=== PATIENT | male | born 1955 | race Caucasian/White ===

== ENCOUNTER 2017-07-13 08:43 | Outpatient (CLI) | payer BC ==
[~2017-07-13] VITALS: Ht 198.1 cm; Wt 113.5 kg
[~2017-07-13 08:43] MED LIST: ALTACE 10MG TAB10 MG PO; ASPIRIN E.C. 8181 MG PO; HCTZ 25MG TAB25 MG PO; LIPITOR20 MG PO; MINOCYCLIN100 MG/CAP PO; NEURONTIN300 MG/CAP PO; PROSCAR 5MG5 MG PO
[2017-07-13] MEDS ORDERED: ALTACE 10MG TAB10 MG PO (09:31)
[2017-07-13] MEDS ORDERED: HCTZ 25MG TAB25 MG PO (09:32)
[2017-07-13] MEDS ORDERED: LIPITOR20 MG PO (09:32)
[2017-07-13] MEDS ORDERED: LYRICA 100MG C100 M1 PO (09:33)
[2017-07-13 10:48] LABS: MEAN CELL VOLUME 84 fl (80.0-100.0); MEAN CORPUSCULAR HGB CONC 33 g/dl (33.0-37.0); MEAN PLATELET VOLUME 11.5 fl (7.4-10.4); PLATELET COUNT 59 K/mm3 (130-400); RED BLOOD COUNT 3.46 M/mm3 (4.20-5.60); REDCELL DISTRIBUTION WIDTH-CV 16.2 % (11.5-14.5)
[2017-07-13 10:50] VITALS: BP 122/69; PULSE 65
[2017-07-13 10:56] LABS: HEMOGLOBIN 9.6 g/dl (13.5-18.0); MEAN CORPUSCULAR HEMOGLOBIN 28 pg (27.0-31.0)
[2017-07-13 11:00] VITALS: BP 109/64; PULSE 79
[2017-07-13 11:15] VITALS: BP 125/71; PULSE 79
[2017-07-13 11:27] VITALS: BP 119/68; PULSE 67
[2017-07-13 11:43] LABS: BAND 15 % (0-10); EOSINOPHIL 1 % (0-4); METAMYELOCYTE 4 % (0-0); NEUTROPHILS 44 % (42.0-75.2); PLATELET ESTIMATE DECREASED (NORMAL)
[2017-07-13 11:44] LABS: LYMPHOCYTE 32 % (20.0-51.0)
== END 2017-07-13 12:31 | disposition home or self-care (01) ==
LOC: SDCO 08:43
PROVIDERS: Pathology Anatomic Pathology & Clinical Pathology
DX: D61.818 Other pancytopenia (principal); I10 Essential (primary) hypertension; G47.33 Obstructive sleep apnea (adult) (pediatric)
CPT/HCPCS: J2250; J2405; J2704; J3010

== ENCOUNTER 2017-08-13 12:50 | Day surgery (SDC) | payer BC ==
[~2017-08-13] VITALS: Ht 198.1 cm; Wt 108.0 kg
[~2017-08-13 12:50] MED LIST changes: +LYRICA 100MG C100 M1 PO
[2017-08-13 13:34] VITALS: BP 123/72; PULSE 87; TEMP 98.1
[2017-08-13] MEDS ORDERED: CYMBALTA 60MG60 MG PO (13:52)
[2017-08-13] MEDS ORDERED: PREDNISONE20 MG PO (13:53)
[2017-08-13 14:45] VITALS: BP 111/67; PULSE 82; TEMP 97.3
[2017-08-13 15:00] VITALS: BP 122/69; PULSE 78
[2017-08-13 15:15] VITALS: BP 101/55; PULSE 81
[2017-08-13 15:30] VITALS: BP 110/60; PULSE 81
[2017-08-13 16:25] VITALS: BP 117/70; PULSE 78
== END 2017-08-13 15:40 | disposition home or self-care (01) ==
LOC: SDCO 12:50
DX: D50.9 Iron deficiency anemia, unspecified (principal); Z86.010 Personal history of colon polyps; K57.30 Diverticulosis of large intestine without perforation or abscess without bleeding; I10 Essential (primary) hypertension; E78.00 Pure hypercholesterolemia, unspecified
CPT/HCPCS: OP; J2250; J3010; J7030

== ENCOUNTER 2017-08-27 10:29 | Inpatient (IN) | payer BC ==
[~2017-08-27] VITALS: Ht 198.1 cm; Wt 107.4 kg
[~2017-08-27 10:29] MED LIST changes: +CYMBALTA 60MG60 MG PO; +PREDNISONE20 MG PO
[2017-09-02] VITALS (365 sets, daily range): BP systolic 100–127; BP diastolic 65–73; PULSE 72–97; TEMP 97.5–99.6; O2SAT 95–100
[2017-09-02 08:07] LABS: MEAN CELL VOLUME 81 fl (80.0-100.0); MEAN CORPUSCULAR HGB CONC 31 g/dl (33.0-37.0); MEAN PLATELET VOLUME 11.8 fl (7.4-10.4); PLATELET COUNT 64 K/mm3 (130-400); RED BLOOD COUNT 3.34 M/mm3 (4.20-5.60); REDCELL DISTRIBUTION WIDTH-CV 19.3 % (11.5-14.5)
[2017-09-02 08:12] LABS: HEMATOCRIT 27.2 % (42.0-52.0); HEMOGLOBIN 8.3 g/dl (13.5-18.0); MEAN CORPUSCULAR HEMOGLOBIN 25 pg (27.0-31.0)
[2017-09-02 08:13] LABS: INR 1.4 (0.8-3.0); PROTHROMBIN TIME 15.8 SECONDS (9.7-12.8)
[2017-09-02 08:16] LABS: PARTIAL THROMBOPLASTIN TIME 28.8 SECONDS (26.0-37.0)
[2017-09-02] MEDS ORDERED: PREDNISONE10 MG PO (08:39)
[2017-09-02 08:47] LABS: ANISOCYTOSIS 3+; BAND 1 % (0-10); LYMPHOCYTE 87 % (20.0-51.0); NEUTROPHILS 9 % (42.0-75.2); PLATELET ESTIMATE DECREASED (NORMAL)
[2017-09-02 08:48] LABS: OVALOCYTES 1+
[2017-09-02 13:24] LABS: MEAN CELL VOLUME 83 fl (80.0-100.0); MEAN CORPUSCULAR HGB CONC 32 g/dl (33.0-37.0); MEAN PLATELET VOLUME 11.6 fl (7.4-10.4); PLATELET COUNT 85 K/mm3 (130-400); RED BLOOD COUNT 3.35 M/mm3 (4.20-5.60); REDCELL DISTRIBUTION WIDTH-CV 18.4 % (11.5-14.5)
[2017-09-02 13:25] LABS: HEMOGLOBIN 8.9 g/dl (13.5-18.0); MEAN CORPUSCULAR HEMOGLOBIN 27 pg (27.0-31.0)
[2017-09-02 13:26] LABS: HEMATOCRIT 27.8 % (42.0-52.0)
[2017-09-02 13:31] LABS: INR 1.5 (0.8-3.0); PROTHROMBIN TIME 17.1 SECONDS (9.7-12.8)
[2017-09-02 14:06] LABS: CALCIUM 7.3 mg/dL (8.4-10.2); CREATININE, serum 0.94 mg/dL (0.66-1.25)
[2017-09-02 14:09] LABS: POTASSIUM 5.8 mmol/L (3.4-5.0)
[2017-09-03] VITALS (549 sets, daily range): BP systolic 118–150; BP diastolic 69–86; PULSE 66–89; TEMP 97–97.7; O2SAT 94–100
[2017-09-03 06:43] LABS: HEMATOCRIT 24.4 % (42.0-52.0); HEMOGLOBIN 7.8 g/dl (13.5-18.0); MEAN CELL VOLUME 83 fl (80.0-100.0); MEAN CORPUSCULAR HEMOGLOBIN 26 pg (27.0-31.0); MEAN CORPUSCULAR HGB CONC 32 g/dl (33.0-37.0); MEAN PLATELET VOLUME 11.6 fl (7.4-10.4); PLATELET COUNT 101 K/mm3 (130-400); RED BLOOD COUNT 2.95 M/mm3 (4.20-5.60); REDCELL DISTRIBUTION WIDTH-CV 17.9 % (11.5-14.5)
[2017-09-03 06:59] LABS: CALCIUM 7.7 mg/dL (8.4-10.2); CREATININE, serum 0.83 mg/dL (0.66-1.25); POTASSIUM 4.4 mmol/L (3.4-5.0)
[2017-09-04] VITALS (7 sets, daily range): BP systolic 120–140; BP diastolic 55–72; PULSE 70–87; TEMP 97.8–98.7
[2017-09-04 06:57] LABS: MEAN CELL VOLUME 84 fl (80.0-100.0); MEAN CORPUSCULAR HGB CONC 31 g/dl (33.0-37.0); MEAN PLATELET VOLUME 11.9 fl (7.4-10.4); PLATELET COUNT 123 K/mm3 (130-400); RED BLOOD COUNT 2.55 M/mm3 (4.20-5.60); REDCELL DISTRIBUTION WIDTH-CV 18.4 % (11.5-14.5)
[2017-09-04 07:11] LABS: CALCIUM 7.7 mg/dL (8.4-10.2); CREATININE, serum 0.8 mg/dL (0.66-1.25); POTASSIUM 3.9 mmol/L (3.4-5.0)
[2017-09-04 07:30] LABS: HEMATOCRIT 21.5 % (42.0-52.0); HEMOGLOBIN 6.7 g/dl (13.5-18.0); MEAN CORPUSCULAR HEMOGLOBIN 26 pg (27.0-31.0)
[2017-09-04 15:49] LABS: HEMATOCRIT 26.3 % (42.0-52.0); HEMOGLOBIN 8.3 g/dl (13.5-18.0)
[2017-09-05 00:18] VITALS: BP 130/70; PULSE 84; TEMP 98.6
[2017-09-05 04:00] VITALS: BP 141/63; PULSE 73; TEMP 98.6
[2017-09-05 06:35] LABS: MEAN CELL VOLUME 87 fl (80.0-100.0); MEAN CORPUSCULAR HGB CONC 31 g/dl (33.0-37.0); MEAN PLATELET VOLUME 11.8 fl (7.4-10.4); PLATELET COUNT 154 K/mm3 (130-400); RED BLOOD COUNT 2.76 M/mm3 (4.20-5.60); REDCELL DISTRIBUTION WIDTH-CV 18.6 % (11.5-14.5)
[2017-09-05 06:44] LABS: HEMOGLOBIN 7.5 g/dl (13.5-18.0); MEAN CORPUSCULAR HEMOGLOBIN 27 pg (27.0-31.0)
[2017-09-05 07:57] VITALS: BP 135/65; PULSE 84; TEMP 98.7
== END 2017-09-05 13:35 | disposition home or self-care (01) | DRG 800 ==
LOC: INPTSU 09-02 07:29 → SURG 09-02 09:30 → ICU 09-02 14:14 → JCC 09-03 14:30
PROVIDERS: Surgery
PROC: 0WJG4ZZ Inspection of Peritoneal Cavity, Percutaneous Endoscopic Approach (ICD-10-PCS; 2017-09-02)
PROC: 07TP0ZZ Resection of Spleen, Open Approach (ICD-10-PCS; principal; 2017-09-02 09:30)
DX: R16.1 Splenomegaly, not elsewhere classified (principal); D61.818 Other pancytopenia; D62 Acute posthemorrhagic anemia; Z53.31 Laparoscopic surgical procedure converted to open procedure
CPT/HCPCS: A4314; A9284; J0690; J1100; J1170; J1720; J2370; J2405; J2704; J3010; J7030; J7120; J7512; P9016; P9035

== ENCOUNTER → 2017-09-29 | Outpatient (CLI) | payer BC ==
[~2017-09-29] MED LIST changes: +PREDNISONE10 MG PO
== END ==
LOC: COL.VAS 10:57
DX: Z01.818 Encounter for other preprocedural examination (principal); I35.1 Nonrheumatic aortic (valve) insufficiency

== ENCOUNTER → 2017-10-13 | Outpatient (CLI) | payer BC ==
[~2017-10-13] VITALS: Ht 198.1 cm; Wt 105.3 kg
[2017-10-13 10:01] VITALS: BP 127/66; PULSE 95
[2017-10-13 11:05] VITALS: BP 141/75; PULSE 91
[2017-10-13 11:20] VITALS: BP 139/71; PULSE 86
[2017-10-13 11:35] VITALS: BP 128/70; PULSE 91
== END ==
LOC: COL.RAD 09:30
DX: C83.07 Small cell B-cell lymphoma, spleen (principal); C85.95 Non-Hodgkin lymphoma, unspecified, lymph nodes of inguinal region and lower limb; Z90.81 Acquired absence of spleen

== ENCOUNTER → 2018-03-30 | Outpatient (CLI) | payer MEDICARE, BC | LOC: COL.RAD 10:00 | DX: C83.07 Small cell B-cell lymphoma, spleen (principal); J84.10 Pulmonary fibrosis, unspecified; Z95.828 Presence of other vascular implants and grafts; Z90.81 Acquired absence of spleen | CPT/HCPCS: Q9967 ==

== ENCOUNTER → 2018-04-09 | Outpatient (CLI) | payer MEDICARE, BC | LOC: COL.VAS 12:13 | DX: I08.1 Rheumatic disorders of both mitral and tricuspid valves (principal); R79.89 Other specified abnormal findings of blood chemistry; R10.9 Unspecified abdominal pain; R60.0 Localized edema ==

== ENCOUNTER 2018-05-25 07:00 | Day surgery (SDC) | payer MEDICARE, BC ==
[2018-05-25] VITALS (13 sets, daily range): BP systolic 97–122; BP diastolic 60–70; PULSE 69–81; TEMP 97.9–98.2
[~2018-05-25] VITALS: Ht 198.2 cm; Wt 113.0 kg
[2018-05-25 07:31] LABS: HEMATOCRIT 41.9 % (42.0-52.0); HEMOGLOBIN 13.5 g/dl (13.5-18.0); MEAN CELL VOLUME 90 fl (80.0-100.0); MEAN CORPUSCULAR HEMOGLOBIN 29 pg (27.0-31.0); MEAN CORPUSCULAR HGB CONC 32 g/dl (33.0-37.0); MEAN PLATELET VOLUME 12.7 fl (7.4-10.4); PLATELET COUNT 160 K/mm3 (130-400); RED BLOOD COUNT 4.64 M/mm3 (4.20-5.60); REDCELL DISTRIBUTION WIDTH-CV 15.4 % (11.5-14.5)
[2018-05-25 07:36] LABS: INR 1.2 (0.8-3.0); PROTHROMBIN TIME 13.4 SECONDS (9.7-12.8)
[2018-05-25 07:47] LABS: CALCIUM 9.2 mg/dL (8.4-10.2); CREATININE, serum 0.89 mg/dL (0.66-1.25); POTASSIUM 3.9 mmol/L (3.4-5.0)
[2018-05-25] MEDS ORDERED: COREG 6.256.25 MG/TA PO (07:54)
[2018-05-25] MEDS ORDERED: ALTACE 10MG TAB10 MG PO (07:55)
--- NOTE | 2018-05-25 08:59 | NUR ---
ALL MEDICATIONS GIVEN VIA VERBAL ORDER WITH READBACK WITH MD. SEE MERGE FOR ALL ADMIN TIMES. 325 MG OF ASPIRIN GIVEN PER MD ORDER PRIOR TO PROCEDURE.
--- NOTE | 2018-05-25 09:40 | NUR ---
Pt returned to EU 14 per bed s/p heart cath. Pt resting well, at bedside.
--- NOTE | 2018-05-25 13:50 | NUR ---
Pt has ambulated, voided and fidel PO intake s n/v. PIV removed with catheter intact.
--- NOTE | 2018-05-25 14:30 | NUR ---
Pt discharged per w/c by nurse with .
== END 2018-05-25 14:36 | disposition home or self-care (01) ==
LOC: COL.CAR 07:00
PROVIDERS: Internal Medicine Cardiovascular Disease
DX: I25.10 Atherosclerotic heart disease of native coronary artery without angina pectoris (principal); I42.8 Other cardiomyopathies; R94.39 Abnormal result of other cardiovascular function study; E78.2 Mixed hyperlipidemia; I11.0 Hypertensive heart disease with heart failure; I50.21 Acute systolic (congestive) heart failure; Z90.49 Acquired absence of other specified parts of digestive tract; Z88.0 Allergy status to penicillin; Z79.82 Long term (current) use of aspirin; Z80.9 Family history of malignant neoplasm, unspecified; Z83.3 Family history of diabetes mellitus; Z82.49 Family history of ischemic heart disease and other diseases of the circulatory system; Z80.7 Family history of other malignant neoplasms of lymphoid, hematopoietic and related tissues
CPT/HCPCS: C1760; C1894; J1644; J2250; J3010; Q9967

== ENCOUNTER 2018-08-02 14:49 | Outpatient (RCR) | payer SELFPAY ==
[~2018-08-02 14:49] MED LIST changes: +COREG 6.256.25 MG/TA PO
== END 2018-08-05 | disposition home or self-care (01) ==
LOC: COL.CR
DX: Z02.89 Encounter for other administrative examinations (principal)

== ENCOUNTER 2018-10-20 10:57 | Day surgery (SDC) | payer MEDICARE, BC ==
[~2018-10-20] VITALS: Ht 198.1 cm; Wt 110.6 kg
[2018-10-20 10:57] VITALS: BP 106/68; PULSE 63; TEMP 98.1
[2018-10-20] MEDS ORDERED: ZEBETA 5MG5 MG PO (11:10)
[2018-10-20] MEDS ORDERED: LASIX 20MG TABL20 MG PO (11:11)
[2018-10-20] MEDS ORDERED: ZAROXOLYN 2.52.5 MG PO (11:12)
[2018-10-20 11:45] LABS: HEMATOCRIT 43.2 % (42.0-52.0); MEAN CELL VOLUME 89 fl (80.0-100.0); MEAN CORPUSCULAR HEMOGLOBIN 29 pg (27.0-31.0); MEAN CORPUSCULAR HGB CONC 32 g/dl (33.0-37.0); MEAN PLATELET VOLUME 12.6 fl (7.4-10.4); PLATELET COUNT 114 K/mm3 (130-400); RED BLOOD COUNT 4.84 M/mm3 (4.20-5.60); REDCELL DISTRIBUTION WIDTH-CV 15.3 % (11.5-14.5)
[2018-10-20 11:50] LABS: INR 1.2 (0.8-3.0); PROTHROMBIN TIME 13.5 SECONDS (9.7-12.8)
[2018-10-20 11:54] LABS: CALCIUM 9.2 mg/dL (8.4-10.2); CREATININE, serum 0.85 (0.66-1.25)
[2018-10-20 14:43] VITALS: BP 116/78; PULSE 72
--- NOTE | 2018-10-20 14:45 | NUR ---
SEE MERGE DOCUMENTATION FOR MEDICATION ADMINISTRATION TIMES AND INTRA/POST PROCEDURE SEDATION ASSESSMENTS.
[2018-10-20 17:30] VITALS: BP 101/64; PULSE 74
[2018-10-20 18:00] VITALS: BP 103/68; PULSE 66
[2018-10-20 19:19] VITALS: BP 94/50; PULSE 78; TEMP 97.3
--- NOTE | 2018-10-20 20:00 | NUR ---
Patient is alert and oriented laying in bed watching tv. Complaints of some aching pain at the ICD site. Assessment complete. Lungs are clear in all salazar. HR and rhythm regular with normal S1 and S2 heard. Bowel sounds active x4. Patient has no further needs at this time. Ice pack is placed on the ICD site, medications to be given. Will continue to monitor. Call light within reach.
[2018-10-20 23:19] VITALS: BP 102/61; PULSE 71; TEMP 97.4
--- NOTE | 2018-10-21 | NUR ---
Patient asleep at this time. No current needs. Will continue to monitor.
[2018-10-21 03:56] VITALS: BP 104/66; PULSE 73; TEMP 97.4
--- NOTE | 2018-10-21 04:00 | NUR ---
Patient has complaints of aching in his left chest where ICD was placed. Ice Pack in place. Tylenol given.
[2018-10-21] MEDS ORDERED: CLEOCIN HCL300 MG PO (10:42)
[2018-10-21] MEDS ORDERED: ZEBETA10 MG PO (10:43)
[2018-10-21] MEDS ORDERED: ENTRESTO 49 MG1 EACH PO (10:47)
--- NOTE | 2018-10-21 10:53 | NUR ---
PRATIK met with the patient and patient's , Glenda, to discuss discharge plan. The patient lives in [place] with his . He reports independence with ADLs and does not have any DME. The patient's PCP is Dr. Shivam Batista and he receives his medications at [facility]. The patient's reports no difficulties obtaining his meds. The patient's advanced directives are in EMR. His is his DPOA-HC. The patient plans to return home with his upon discharge. No additional needs at this time.
[2018-10-21 11:15] VITALS: BP 91/60; PULSE 71; TEMP 98.1
--- NOTE | 2018-10-21 12:12 | NUR ---
Patient discharged home with . Ambulated to private vehicle with no difficulty and steady gait. Is wearing sling. Discharge instructions reviewed and patient verbalized understanding.
== END 2018-10-21 12:10 | disposition home or self-care (01) ==
LOC: COL.CAR 10:57 → MEDICAL 17:27 → COL.CAR 10-21 12:10
PROVIDERS: Internal Medicine Cardiovascular Disease
DX: I42.8 Other cardiomyopathies (principal); I34.0 Nonrheumatic mitral (valve) insufficiency; E78.2 Mixed hyperlipidemia; Z85.72 Personal history of non-Hodgkin lymphomas; Z92.21 Personal history of antineoplastic chemotherapy; Z90.81 Acquired absence of spleen; I10 Essential (primary) hypertension; E78.5 Hyperlipidemia, unspecified; Z79.899 Other long term (current) drug therapy; Z79.82 Long term (current) use of aspirin; Z80.9 Family history of malignant neoplasm, unspecified; Z82.49 Family history of ischemic heart disease and other diseases of the circulatory system
CPT/HCPCS: OP; C1721; C1769; C1777; J2250; J3010; J3370; J7030; J7050

== ENCOUNTER 2018-11-03 14:41 | Outpatient (RCR) | payer SELFPAY ==
[~2018-11-03 14:41] MED LIST changes: +CLEOCIN HCL300 MG PO; +ENTRESTO 49 MG1 EACH PO; +LASIX 20MG TABL20 MG PO; +ZAROXOLYN 2.52.5 MG PO; +ZEBETA 5MG5 MG PO; +ZEBETA10 MG PO
== END 2018-11-04 | disposition home or self-care (01) ==
LOC: COL.CR
DX: Z02.89 Encounter for other administrative examinations (principal)

== ENCOUNTER 2018-11-29 15:16 | Outpatient (RCR) | payer SELFPAY | END 2019-02-03 | disposition home or self-care (01) | LOC: COL.CR | DX: Z02.89 Encounter for other administrative examinations (principal) ==

== ENCOUNTER → 2018-11-30 | Outpatient (CLI) | payer MEDICARE, BC | LOC: COL.RAD 09:58 | DX: C83.07 Small cell B-cell lymphoma, spleen (principal); D69.6 Thrombocytopenia, unspecified; Z90.81 Acquired absence of spleen; Z90.79 Acquired absence of other genital organ(s) | CPT/HCPCS: Q9967 ==

== ENCOUNTER → 2019-05-24 | Outpatient (CLI) | payer MEDICARE, BC | LOC: COL.RAD 09:35 | DX: C83.07 Small cell B-cell lymphoma, spleen (principal); Z95.0 Presence of cardiac pacemaker; Z90.81 Acquired absence of spleen; Z90.79 Acquired absence of other genital organ(s) | CPT/HCPCS: Q9967 ==

== ENCOUNTER → 2019-11-08 | Outpatient (CLI) | payer MEDICARE, BC | LOC: COL.RAD 08:13 | DX: C85.90 Non-Hodgkin lymphoma, unspecified, unspecified site (principal); C95.90 Leukemia, unspecified not having achieved remission; Z90.81 Acquired absence of spleen; Z90.79 Acquired absence of other genital organ(s); Z98.890 Other specified postprocedural states | CPT/HCPCS: Q9967 ==

== ENCOUNTER → 2020-05-02 | Outpatient (CLI) | payer MEDICARE, BC ==
[~2020-05-02] MED LIST changes: +ENTRESTO 97 MG1 EACH PO
== END ==
LOC: COL.RAD 08:52
DX: C85.90 Non-Hodgkin lymphoma, unspecified, unspecified site (principal); Z90.81 Acquired absence of spleen; Z90.79 Acquired absence of other genital organ(s)
CPT/HCPCS: Q9967

== ENCOUNTER 2020-07-04 13:17 | Outpatient (CLI) | payer MEDICARE, BC ==
[~2020-07-04] VITALS: Ht 198.1 cm; Wt 112.7 kg
[~2020-07-04 13:17] MED LIST changes: +ENTRESTO 24 MG1 EACH PO; -ENTRESTO 97 MG1 EACH PO
[2020-07-04 13:20] VITALS: BP 115/55; PULSE 84; TEMP 102.9
[2020-07-04 13:30] VITALS: BP 130/64; PULSE 85
[2020-07-04] MEDS ORDERED: ZEBETA 5MG5 MG PO (13:37)
[2020-07-04] MEDS ORDERED: ZAROXOLYN5 MG PO (13:42)
[2020-07-04] MEDS ORDERED: CLARITIN 1010 MG/TAB PO (13:44)
[2020-07-04 13:45] VITALS: BP 121/54; PULSE 86
[2020-07-04] MEDS ORDERED: ONE-A-DAY ESSE1 EACH PO (13:45)
[2020-07-04 14:00] VITALS: BP 140/67; PULSE 80
[2020-07-04 14:15] VITALS: BP 129/66; PULSE 83; TEMP 101.4
[2020-07-04 14:30] VITALS: BP 124/54; PULSE 83
--- NOTE | 2020-07-04 14:44 | NUR ---
PT TOLERATED BAM INFUSION WITH NO PROBLEM. PT IS ESCORTED TO EXIT VIA WHEELCHAIR, STATES PLANS TO TAKE TYLENOL AND/OR IBUPROFEN FOR HIS FEVER WHEN HE GETS HOME.
== END 2020-07-04 14:46 | disposition home or self-care (01) ==
LOC: EUO 13:17
DX: Z23 Encounter for immunization (principal); U07.1 COVID-19

== ENCOUNTER → 2020-07-16 | Outpatient (CLI) | payer MEDICARE, BC ==
[~2020-07-16] MED LIST changes: +CLARITIN 1010 MG/TAB PO; +ONE-A-DAY ESSE1 EACH PO; +PACERONE400 MG PO; +ZAROXOLYN5 MG PO
== END ==
LOC: COL.RAD 15:30
DX: J18.8 Other pneumonia, unspecified organism (principal); Z90.81 Acquired absence of spleen
CPT/HCPCS: Q9967

== ENCOUNTER 2020-07-31 12:50 | Emergency (ER) | payer MEDICARE, BC ==
[~2020-07-31] VITALS: Ht 198.1 cm; Wt 109.1 kg
[~2020-07-31 12:50] MED LIST changes: -PACERONE400 MG PO
[2020-07-31 12:53] VITALS: TEMP 98.5
[2020-07-31 13:16] LABS: HEMATOCRIT 42.9 % (42.0-52.0); HEMOGLOBIN 13.9 g/dl (13.5-18.0); MEAN CELL VOLUME 91 fl (80.0-100.0); MEAN CORPUSCULAR HEMOGLOBIN 29 pg (27.0-31.0); MEAN CORPUSCULAR HGB CONC 32 g/dl (33.0-37.0); MEAN PLATELET VOLUME 12.2 fl (7.4-10.4); PLATELET COUNT 123 K/mm3 (130-400); RED BLOOD COUNT 4.74 M/mm3 (4.20-5.60); REDCELL DISTRIBUTION WIDTH-CV 15.5 % (11.5-14.5)
[2020-07-31 13:29] LABS: ALBUMIN 3.7 gm/dL (3.5-5.0); BILIRUBIN,TOTAL 0.7 mg/dL (0.0-1.0); CALCIUM 8.6 mg/dL (8.4-10.2); CREATININE, serum 0.93 (0.66-1.25); POTASSIUM 3.8 mmol/L (3.4-5.0); TOTAL PROTEIN 6.6 gm/dL (6.4-8.2)
[2020-07-31 13:40] LABS: INR 1.2 (0.8-3.0); PROTHROMBIN TIME 13.3 SECONDS (9.7-12.8)
[2020-07-31 13:43] LABS: PARTIAL THROMBOPLASTIN TIME 29.2 SECONDS (26.0-37.0); TROPONIN-I 0.045 ng/mL (0.000-0.035)
[2020-07-31 13:54] LABS: BAND 11 % (0-10); EOSINOPHIL 1 % (0-4); NEUTROPHILS 27 % (42.0-75.2); NUCLEATED RED BLOOD CELL 1 (0-6)
[2020-07-31 13:55] LABS: LYMPHOCYTE 35 % (20.0-51.0)
[2020-07-31 13:56] LABS: BURR CELLS 1+; OVALOCYTES 1+; SCHISTOCYTES 1+
[2020-07-31 13:57] LABS: PLATELET ESTIMATE DECREASED (NORMAL); POIKILOCYTOSIS 1+
[2020-07-31 14:45] LABS: COLLECTION METHOD CLEAN CATCH
[2020-07-31 14:53] LABS: MUCOUS Present /lpf; PH 5 (5-8); SQUAMOUS EPITHELIAL None Seen /hpf; URINE APPEARANCE Hazy; URINE BACTERIA None Seen /hpf; URINE BILIRUBIN Negative (NEGATIVE); URINE BLOOD Negative (NEGATIVE); URINE COLOR Amber; URINE GLUCOSE Negative (NEGATIVE); URINE KETONE Negative (NEGATIVE); URINE LEUKOCYTE ESTERASE Negative (NEGATIVE); URINE NITRATE Negative (NEGATIVE); URINE PROTEIN(semi-quant) 2+ (NEGATIVE); URINE RBC 0-2 /hpf; URINE UROBILINOGEN >=4.0 mg/dL (NEGATIVE)
[2020-07-31 16:06] VITALS: BP 122/67; PULSE 82
[2020-08-01] MEDS ORDERED: PACERONE400 MG PO (11:35)
== END 2020-07-31 16:06 | disposition home or self-care (01) ==
LOC: COL.ER 12:50
PROVIDERS: Family Medicine
DX: I47.1 Supraventricular tachycardia (principal); B34.9 Viral infection, unspecified; Z88.0 Allergy status to penicillin; Z79.82 Long term (current) use of aspirin
CPT/HCPCS: J0696; J7030; J7120

== ENCOUNTER 2020-08-01 09:45 | Day surgery (SDC) | payer MEDICARE, BC ==
[~2020-08-01] VITALS: Ht 198.1 cm; Wt 111.6 kg
[2020-08-01 10:01] VITALS: BP 121/72; PULSE 94; TEMP 99.6
[2020-08-01] MEDS ORDERED: PACERONE400 MG PO (11:35)
--- NOTE | 2020-08-01 12:00 | NUR ---
Pt has had opportunity to speak with Dr. Freeman regarding POC. Pt is discharged with written follow up and medication instructions. Pt and verbalized understanding and deny any further questions. Pt is escorted to exit via wheelchair.
== END 2020-08-01 12:32 | disposition home or self-care (01) ==
LOC: COL.CAR 09:45
DX: I08.0 Rheumatic disorders of both mitral and aortic valves (principal); I42.9 Cardiomyopathy, unspecified; E78.2 Mixed hyperlipidemia; I10 Essential (primary) hypertension; Z88.8 Allergy status to other drugs, medicaments and biological substances; Z88.0 Allergy status to penicillin; Z79.82 Long term (current) use of aspirin; Z53.8 Procedure and treatment not carried out for other reasons

== ENCOUNTER → 2020-10-31 | Outpatient (CLI) | payer MEDICARE, BC ==
[~2020-10-31] MED LIST changes: +PACERONE400 MG PO
== END ==
LOC: COL.RAD 07:56
DX: C83.07 Small cell B-cell lymphoma, spleen (principal); Z90.81 Acquired absence of spleen; Z90.79 Acquired absence of other genital organ(s)
CPT/HCPCS: Q9967

== ENCOUNTER → 2021-05-01 | Outpatient (CLI) | payer MEDICARE, BC | LOC: COL.RAD 08:04 | DX: C85.90 Non-Hodgkin lymphoma, unspecified, unspecified site (principal) | CPT/HCPCS: Q9967 ==

== ENCOUNTER 2023-10-09 14:45 | Outpatient (RCR) | payer MEDICARE, BC ==
[~2023-10-09 14:45] MED LIST changes: +AMITIZA24 MCG PO; +CIPRO 500MG TA500 MG PO; +CORDARONE200 MG/TAB PO; +ELIQUIS 5MG PO; +JARDIANCE10; +K-DUR20 MEQ PO; +LIORESAL 1010 MG/TAB PO; +PROTONIX 40MG T40 MG PO; +SINEMET 25/101 UDTAB PO; +VFEND 200MG200 MG PO; +VITAMIN D 50,1.25 MG PO
[2023-10-21] MEDS ORDERED: LIALDA 1.2 GM1.2 GM PO (12:14)
[2023-10-21] MEDS ORDERED: DESYREL 50MG50 MG PO (12:15)
[2023-10-21] MEDS ORDERED: GOOD NEIGH3.4 GM/Dos PO (12:16)
[2023-10-21] MEDS ORDERED: LASIX 20MG TABL20 MG PO (12:16)
[2023-10-21] MEDS ORDERED: LASIX 40MG TABL40 MG PO (12:17)
[2023-10-21] MEDS ORDERED: ZOFRAN8 MG PO (12:18)
== END 2023-10-11 | disposition home or self-care (01) ==
LOC: MKS.ESL.PT
DX: C85.90 Non-Hodgkin lymphoma, unspecified, unspecified site (principal); G20.A1 Parkinson's disease without dyskinesia, without mention of fluctuations; S24.103D Unspecified injury at T7-T10 level of thoracic spinal cord, subsequent encounter

== ENCOUNTER 2023-10-22 19:08 | Inpatient (IN) | payer MEDICARE, BC ==
[~2023-10-22] VITALS: Ht 195.6 cm; Wt 103.5 kg
[~2023-10-22 19:08] MED LIST changes: +DESYREL 50MG50 MG PO; +GOOD NEIGH3.4 GM/Dos PO; +LASIX 40MG TABL40 MG PO; +LIALDA 1.2 GM1.2 GM PO; +ZOFRAN8 MG PO
[2023-10-22] MEDS ORDERED: NS 1,000 ML IV SCH (19:30)
[2023-10-22 20:34] LABS: COLLECTION METHOD CLEAN CATCH
[2023-10-22 20:36] LABS: HEMOGLOBIN 11.2 g/dl (13.5-18.0); MEAN CELL VOLUME 88 fl (80.0-100.0); MEAN CORPUSCULAR HEMOGLOBIN 29 pg (27-31); MEAN CORPUSCULAR HGB CONC 32 g/dl (33.0-37.0); MEAN PLATELET VOLUME 12.6 fl (7.4-10.4); PLATELET COUNT 245 K/mm3 (130-400); RED BLOOD COUNT 3.93 M/mm3 (4.20-5.60); REDCELL DISTRIBUTION WIDTH-CV 19.4 % (11.5-14.5)
[2023-10-22 20:38] LABS: HEMATOCRIT 34.7 % (42.0-52.0)
[2023-10-22 20:43] LABS: PH 5.5 (5.0-8.5); URINE APPEARANCE CLEAR (CLEAR/HAZY); URINE BLOOD NEGATIVE (NEGATIVE); URINE COLOR Dark Yellow (YELLOW); URINE GLUCOSE NEGATIVE (NEGATIVE); URINE KETONE TRACE (NEGATIVE); URINE NITRATE NEGATIVE (NEGATIVE); URINE PROTEIN(semi-quant) 1+ (NEGATIVE)
[2023-10-22 20:53] LABS: BILIRUBIN,TOTAL 1.8 mg/dL (0.2-1.2); CREATININE, serum 0.89 mg/dL (0.72-1.25); POTASSIUM 4.1 mEq/L (3.5-4.5); TOTAL PROTEIN 5.6 g/dl (6.2-8.1)
[2023-10-22] MEDS ORDERED: cefTRIAXone 2 G in Water For Injection,Sterile 20 ML IV ONE (21:00)
[2023-10-22] MEDS ORDERED: NS 1,000 ML IV ONE (21:00)
[2023-10-22] MEDS ORDERED: Bisoprolol 5 MG TAB PO SCH (21:00)
[2023-10-22 21:07] LABS: BAND 1 % (0-10); LYMPHOCYTE 7 % (20.0-51.0); NEUTROPHILS 78 % (42.0-75.2); NUCLEATED RED BLOOD CELL 1 (0-6)
[2023-10-22] MEDS ORDERED: Acetaminophen 325 MG TAB PO PRN (21:45)
[2023-10-22] MEDS ORDERED: Mag/Al Hydrox/Simeth Susp 30 ML CUP PO PRN (21:45)
[2023-10-22] MEDS ORDERED: Ondansetron 4 MG/2 ML VIAL IV PRN ×2 (21:45)
[2023-10-22] MEDS ORDERED: Doxycycline Hyclate 100 MG in NS 150 ML IV SCH (21:45)
[2023-10-22] MEDS ORDERED: Albuterol/Ipratropium 3 MG-0.5 MG/3 ML Neb Soln IH PRN (21:45)
[2023-10-22] MEDS ORDERED: LR 1,000 ML IV SCH (21:45)
[2023-10-22] MEDS ORDERED: Apixaban 5 MG TABLET PO SCH (22:11)
[2023-10-22] MEDS ORDERED: NS IV SCH (22:26)
[2023-10-22] MEDS ORDERED: Iohexol 300 - 100 ML VIAL IV ONE (22:26)
--- NOTE | 2023-10-22 23:30 | NUR ---
Admitted to medical floor from ER, VSS, 98.3,18,97,93%on RA, 117/62, with patient. TRansferred to bed with 3 assists and transfer slide board- was incontinent of loose stool-cleaned up at this time,, coccyx is red,new mepilex applied, has open area to left lower buttocks measures 1.5 inches x 1 inch , area is red with the center white-no drainage. new mepilex applied. also has scaly white patches to right diaz- pt is alert/oriented x4 , Has IV fluids of NS that was hung in ER -almost done-- will hand the LR as ordered at 75cc/hr. Did the med rec with and patient, pt uses wheelchair at home with slide board-unable to put weight on legs- states he last walked in dec- edema to lower extremities. Has a SP catheter that was just changed out by Carlos Steele yesterday at hospital-some redness around insertion site. Fall Risk protocol in place-bed alarm on-- pt and specifically states they want the side rails up x4.
[2023-10-22 23:48] VITALS: BP 117/62; PULSE 97; TEMP 98.3
[2023-10-23] VITALS (11 sets, daily range): BP systolic 97–117; BP diastolic 42–60; PULSE 89–97; TEMP 98.1–99
--- NOTE | 2023-10-23 01:15 | NUR ---
Has had 4 episodes of foul smelling diarrhea in the past hour- Saleem SOSA called and he put in order for stool specimens to collect and put pt on Contact isolation.
--- NOTE | 2023-10-23 01:34 | NUR ---
CPAP HELD FOR THE NIGHT DUE TO NAUSEA AND VOMITING.
[2023-10-23] MEDS ORDERED: MELATONIN5 M1 PO (01:58)
[2023-10-23 02:26] LABS: CLOSTRIDIUM DIFF A/B NEG
--- NOTE | 2023-10-23 04:50 | NUR ---
Continues to have constant liquid stool- PA called and informed c diff was negative, order obtained for a rectal tube- rectal tube placed at this time.
[2023-10-23 06:48] LABS: HEMOGLOBIN 10.3 g/dl (13.5-18.0); MEAN CELL VOLUME 90 fl (80.0-100.0); MEAN CORPUSCULAR HEMOGLOBIN 30 pg (27-31); MEAN CORPUSCULAR HGB CONC 33 g/dl (33.0-37.0); MEAN PLATELET VOLUME 12.9 fl (7.4-10.4); PLATELET COUNT 222 K/mm3 (130-400); RED BLOOD COUNT 3.48 M/mm3 (4.20-5.60); REDCELL DISTRIBUTION WIDTH-CV 19.5 % (11.5-14.5)
[2023-10-23 06:51] LABS: HEMATOCRIT 31.2 % (42.0-52.0)
[2023-10-23 07:13] LABS: ALBUMIN 2.4 g/dL (3.4-4.8); BILIRUBIN,TOTAL 1.8 mg/dL (0.2-1.2); C-REACTIVE PROTEIN 8.44 mg/dL (0.00-0.50); CALCIUM 8.1 mg/dL (8.4-10.2); CREATININE, serum 0.76 mg/dL (0.72-1.25); POTASSIUM 3.4 mEq/L (3.5-4.5); TOTAL PROTEIN 4.7 g/dl (6.2-8.1)
[2023-10-23 07:27] LABS: ANISOCYTOSIS 2+; LYMPHOCYTE 4 % (20.0-51.0); METAMYELOCYTE 1 % (0-0); NEUTROPHILS 72 % (42.0-75.2); PLATELET ESTIMATE NORMAL (NORMAL)
[2023-10-23 07:28] LABS: HYPOCHROMIA 1+
[2023-10-23 07:29] LABS: BAND 10 % (0-10)
--- NOTE | 2023-10-23 08:04 | NUR ---
THIS NURSE CALLED AND NOTIFIED DR OLIVIA OF WBC 26.2
--- NOTE | 2023-10-23 08:37 | NUR ---
PT LAYING IN BED UPON ENTERING. ASSESSMENT DONE, MEDS GIVEN WITH SMALL SIPS OF WATER. PT UPDATED ON ABDOMINAL ULTRASOUND AND THE NEED TO BE NPO FOR IT SO NO BREAKFAST AT THIS TIME, PT VERBALIZED UNDERSTANDING. LR RUNNING PER ORDER IN LEFT FOREARM, LEFT AC PATENT. SUPRAPUBIC CATHETER PATENT, GAUZE PLACE AROUND SITE. RECTAL TUBE IN PLACE, NO DRAINAGE NOTED AT THIS TIME. WOUND NOTED LEFT BUTTOCK, OVAL IN SHAPE WITH A RED BORDER IN WHITE INTERIOR, MEPILEX IN PLACE. PT DENIES PAIN OR NEEDS AT THIS TIME. CONTACT PLUS PRECAUTIONS IN PLACE. BED IN LOWEST POSITION, CALL LIGHT IN REACH, BED ALARM ON
--- NOTE | 2023-10-23 08:52 | NUR ---
ULTRASOUND AT BEDSIDE
[2023-10-23] MEDS ORDERED: Pregabalin 50 MG CAP PO SCH (09:00)
[2023-10-23] MEDS ORDERED: Mesalamine DR 1.2 GM TAB PO SCH (09:00)
[2023-10-23] MEDS ORDERED: Baclofen 10 MG TAB PO SCH (09:00)
[2023-10-23] MEDS ORDERED: Amiodarone 200 MG TAB PO SCH (09:00)
[2023-10-23] MEDS ORDERED: cefTRIAXone 1 G in Water For Injection,Sterile 10 ML IV SCH (09:00)
[2023-10-23] MEDS ORDERED: REGULOID0.4 GM PO (09:59)
--- NOTE | 2023-10-23 13:11 | NUR ---
First Line Production Supervisor met with patient and his , Glenda (ph#[phone]) to complete initial intake. Patient lives in [place] and sees Dr. Proctor for primary care. Patient gets his medications from [facility] with no difficulties. Patient uses a wheelchair and has a slide board for transfers. Patient also has a shower chair and CPAP at home. Patient gets assistance with ADLS from Glenda and plans to return home at time of discharge. Patient reported his , Glenda is his DPOA-HC. SW discussed PT/OT orders with Hospitalist during rounding. Discharge Plan: Home
--- NOTE | 2023-10-23 17:07 | NUR ---
WOUND CARE CONSULT CALLED AND THIS NURSE WAS NOTIFIED THAT WOUND CARE WOULD SEE PT ON THURSDAY AND THAT A MEPILEX WILL BE AN APPROPRIATE DRESSING AT THIS TIME. MEPILEX CURRENTLY IN PLACE.
[2023-10-23] MEDS ORDERED: Doxycycline Monohydrate 100 MG CAP PO SCH (21:00)
[2023-10-23] MEDS ORDERED: traZODone 50 MG TAB PO SCH (21:00)
[2023-10-24] VITALS (12 sets, daily range): BP systolic 96–106; BP diastolic 53–64; PULSE 87–95; TEMP 97.9–98.6
--- NOTE | 2023-10-24 00:44 | NUR ---
patient lying in bed, alert and oriented x4. denies chest pain and shortness of breath. IVs in LAC and LF are patent, sites are CDI. small oval shaped wound on left lower buttcheek, CDI. frequent q2 hr turns/repositioning. BLE nonpitting edema noted. pt has no further needs, questions or concerns at this time. fall precautions in place, call light within reach. will continue to monitor.
[2023-10-24 06:13] LABS: MEAN CELL VOLUME 91 fl (80.0-100.0); MEAN CORPUSCULAR HGB CONC 32 g/dl (33.0-37.0); MEAN PLATELET VOLUME 12.9 fl (7.4-10.4); PLATELET COUNT 209 K/mm3 (130-400); REDCELL DISTRIBUTION WIDTH-CV 19.7 % (11.5-14.5)
[2023-10-24 06:20] LABS: HEMATOCRIT 29.1 % (42.0-52.0); HEMOGLOBIN 9.4 g/dl (13.5-18.0); MEAN CORPUSCULAR HEMOGLOBIN 29 pg (27-31)
[2023-10-24 06:30] LABS: ALBUMIN 2.3 g/dL (3.4-4.8); BILIRUBIN,TOTAL 0.9 mg/dL (0.2-1.2); CALCIUM 8.4 mg/dL (8.4-10.2); CREATININE, serum 0.78 mg/dL (0.72-1.25); POTASSIUM 3.1 mEq/L (3.5-4.5); TOTAL PROTEIN 4.7 g/dl (6.2-8.1)
[2023-10-24 07:19] LABS: ANISOCYTOSIS 3+; BAND 6 % (0-10); HYPOCHROMIA 1+; LYMPHOCYTE 27 % (20.0-51.0); NEUTROPHILS 54 % (42.0-75.2); OVALOCYTES 1+; PLATELET ESTIMATE NORMAL (NORMAL)
[2023-10-24] MEDS ORDERED: Potassium Bicarbonate/Citrate 20 MEQ Effervescent TAB PO SCH (07:30)
[2023-10-24] MEDS ORDERED: *Potassium Replacement Protocol MC SCH (07:30)
--- NOTE | 2023-10-24 08:15 | NUR ---
PT AWAKE AND RESTING IN BED WITH AT BEDSIDE. SCHEDULED MEDS GIVEN PER eMAR. DENIES PAIN. PT REPOSITIONED IN BED TO SUPINE POSITION. NO OTHER CONCERNS. BED ALARM ON AND CALL LIGHT WITHIN REACH.
--- NOTE | 2023-10-24 10:06 | NUR ---
PATIENT RESTING IN BED UPON ENTERING ROOM. MORNING MEDICATIONS ADMINISTERED BY FRANCESCA SILVESTRE. SHIFT ASSESSMENT COMPLETED BY THIS RN AND AGREES WITH CHARTED ASSESSMENT COMPLETED BY KONRAD. PATIENTS RECTAL TUBE HAS LOW OUTPUT, SUPRAPUBIC CATH DRAINING WELL. PATIENT DENIES ANY ADDITIONAL NEEDS AT THIS TIME. CALL LIGHT WITHIN REACH, BED ALARM IN PLACE. WILL CONTINUE TO MONITOR.
--- NOTE | 2023-10-24 10:44 | NUR ---
VERBAL ORDERS FROM DR. TAYLOR TO REMOVE RECTAL TUBE.
--- NOTE | 2023-10-24 12:15 | NUR ---
PT'S RECTAL TUBE REMOVED AT THIS TIME. ABOUT 35ML DRAINED FROM BALLOON. TUBE INTACT. PT DENIES PAIN. PT ALSO ASSESSED FOR MULTIPLE WOUNDS AT THIS TIME. DOCUMENTED IN SHIFT ASSESSMENT. APPLIED MEPILEX TO BILATERAL HEELS, SACRUM, AND R CABA.
--- NOTE | 2023-10-24 21:00 | NUR ---
UPON SHIFT ASSESSMENT, NINA WAS AWAKE IN BED AND AXO X4 WITH VISITING BEDSIDE. LUNG SOUNDS ARE CLEAR IN ALL QUADRANTS AND PATIENT DENIES PAIN OR SOA. BOWEL SOUND AUDIBLE AND PATIENT IS CURRENTLY NOT EXHIBITING ANY LOOSE STOOLS. SUPRPUBIC CATHETER IS DRAINING MEG URINE AND INSERTION SITE IS CDI WITH GAUZE. BLLE EXHIBITS 2+ EDEMA. PATIENT STATES NO NEEDS AT THIS TIME. VS ARE WNL. CALL LIGHT WITHIN REACH.
--- NOTE | 2023-10-24 23:00 | NUR ---
PATIENT REFUSED CPAP.
--- NOTE | 2023-10-24 23:30 | NUR ---
ALERTED BY PCTBARRINGTON. PATIENT BP SOFT AT 96/61. MAP IS 73-WNL. ROUNDED ON PATIENT. NINA IS AXO X4, RADIAL PULSES +2. SKIN TEMP AND COLOR WARM AND NORMAL. DENIES SOA OR PAIN. CALL LIGHT WITHIN REACH.
[2023-10-25 01:07] VITALS: BP_SYST 96
[2023-10-25 03:26] VITALS: BP 106/58; PULSE 82; TEMP 98
[2023-10-25 05:00] VITALS: BP_SYST 106
[2023-10-25 06:09] LABS: MEAN CELL VOLUME 89 fl (80.0-100.0); MEAN CORPUSCULAR HEMOGLOBIN 29 pg (27-31); MEAN CORPUSCULAR HGB CONC 33 g/dl (33.0-37.0); MEAN PLATELET VOLUME 12.9 fl (7.4-10.4); PLATELET COUNT 232 K/mm3 (130-400); RED BLOOD COUNT 3.46 M/mm3 (4.20-5.60); REDCELL DISTRIBUTION WIDTH-CV 19.9 % (11.5-14.5)
[2023-10-25 06:10] LABS: HEMATOCRIT 30.8 % (42.0-52.0)
[2023-10-25 06:19] LABS: ALBUMIN 2.5 g/dL (3.4-4.8); BILIRUBIN,TOTAL 1.1 mg/dL (0.2-1.2); CALCIUM 8.8 mg/dL (8.4-10.2); CREATININE, serum 0.77 mg/dL (0.72-1.25); POTASSIUM 3.6 mEq/L (3.5-4.5); TOTAL PROTEIN 5.2 g/dl (6.2-8.1)
--- NOTE | 2023-10-25 06:40 | NUR ---
Pt sleeping in bed. Call light in reach.
[2023-10-25 06:59] LABS: ANISOCYTOSIS 2+; BAND 6 % (0-10); EOSINOPHIL 1 % (0-4); LYMPHOCYTE 22 % (20.0-51.0); NEUTROPHILS 53 % (42.0-75.2); PLATELET ESTIMATE NORMAL (NORMAL); TARGET CELLS 1+
[2023-10-25 07:00] LABS: HYPOCHROMIA 2+
[2023-10-25 08:00] VITALS: BP 103/65; PULSE 81; TEMP 97.6
[2023-10-25] MEDS ORDERED: Potassium Bicarbonate/Citrate 20 MEQ Effervescent TAB PO SCH (08:00)
--- NOTE | 2023-10-25 09:08 | NUR ---
Bag Filler met with patient to present and review IM as he is ready for discharge today. Patient verbalized understanding and provided signature. SW placed forn in chart and provided copy to patient. SW discussed outpatient PT and patient stated he goes to [facility] and [facility] for [facility]. Discharge Plan: Home
[2023-10-25 09:35] VITALS: BP_SYST 103
--- NOTE | 2023-10-25 09:35 | NUR ---
Pt laying in bed. at bedside. A&Ox4. VSS. S1S2. Clear lungs on RA. ABD round, soft, non-tender with audible bowel sounds. Palpable pulses in all extremities. edema in BLE and BUE, non-pitting. Suprapubic catheter in place with gauze dressing, CDI. Pt denies pain, n/v, headache. Pt has call light and bed alarm on.
--- NOTE | 2023-10-25 13:15 | NUR ---
Pt and family educated on D/C instructions and information. Answered Pt questions. D/C'ed Pts IVs. Pressure bandages applied. No further needs. Pt transported to vehicle via by NANCY Dodson.
== END 2023-10-25 13:15 | disposition home or self-care (01) | DRG 194 ==
LOC: COL.ER 19:08 → MEDICAL 21:41 → SURG 10-24 16:00
PROVIDERS: Family Medicine; Physician Assistant; ADMIT Internal Medicine
DX: J18.9 Pneumonia, unspecified organism (principal); G82.20 Paraplegia, unspecified; N39.0 Urinary tract infection, site not specified; I50.20 Unspecified systolic (congestive) heart failure; I48.91 Unspecified atrial fibrillation; Z95.810 Presence of automatic (implantable) cardiac defibrillator; Z86.711 Personal history of pulmonary embolism; G20.A1 Parkinson's disease without dyskinesia, without mention of fluctuations; R11.0 Nausea
CPT/HCPCS: J0696; J2405; J7030; J7120; Q9967

== ENCOUNTER 2023-11-12 12:14 | Emergency (ER) | payer MEDICARE, BC ==
[~2023-11-12] VITALS: Ht 195.6 cm; Wt 103.2 kg
[~2023-11-12 12:14] MED LIST changes: +MELATONIN5 M1 PO; +REGULOID0.4 GM PO
[2023-11-12 12:30] VITALS: TEMP 97.4
[2023-11-12 13:58] LABS: HEMOGLOBIN 10.4 g/dl (13.5-18.0); MEAN CELL VOLUME 95 fl (80.0-100.0); MEAN CORPUSCULAR HEMOGLOBIN 29 pg (27-31); MEAN CORPUSCULAR HGB CONC 31 g/dl (33.0-37.0); MEAN PLATELET VOLUME 13.5 fl (7.4-10.4); PLATELET COUNT 194 K/mm3 (130-400); RED BLOOD COUNT 3.55 M/mm3 (4.20-5.60); REDCELL DISTRIBUTION WIDTH-CV 20.4 % (11.5-14.5)
[2023-11-12 14:00] LABS: HEMATOCRIT 33.7 % (42.0-52.0)
[2023-11-12 14:19] LABS: ALANINE AMINOTRANSFERASE 6 U/L (0-55); ALBUMIN 3.1 g/dL (3.4-4.8); ALKALINE PHOSPHATASE 358 U/L (40-150); ANION GAP 11 mmol/L (7-16); AST,SGOT 31 U/L (5-34); BILIRUBIN,TOTAL 0.7 mg/dL (0.2-1.2); BLOOD UREA NITROGEN 28 mg/dL (8-26); CALCIUM 8.5 mg/dL (8.4-10.2); CHLORIDE 112 mEq/L (98-107); CREATININE, serum 1.09 mg/dL (0.72-1.25); GLUCOSE 116 mg/dL (70-99); POTASSIUM 4.8 mEq/L (3.5-4.5); SODIUM 143 mEq/L (136-145); TOTAL PROTEIN 5.8 g/dl (6.2-8.1)
[2023-11-12 14:26] LABS: TROPONIN-I < 0.010 ng/mL (0.00-0.033)
[2023-11-12] MEDS ORDERED: Furosemide 40 MG/4 ML VIAL IV ONE (15:15)
[2023-11-12 15:35] LABS: COLLECTION METHOD IN
[2023-11-12 15:47] LABS: URINE APPEARANCE CLEAR (CLEAR/HAZY); URINE BLOOD NEGATIVE (NEGATIVE); URINE COLOR Dark Yellow (YELLOW); URINE GLUCOSE NEGATIVE (NEGATIVE); URINE KETONE TRACE (NEGATIVE); URINE NITRATE NEGATIVE (NEGATIVE); URINE PROTEIN(semi-quant) 2+ (NEGATIVE)
[2023-11-12 16:05] LABS: SQUAMOUS EPITHELIAL 0-2 /hpf (0-10); URINE BACTERIA RARE /hpf (NONE SEEN); URINE RBC 0-2 /hpf (0-2)
[2023-11-12] MEDS ORDERED: LASIX 20MG TABL20 MG PO (16:25)
[2023-11-12 17:36] VITALS: BP 101/70; PULSE 83
== END 2023-11-12 17:03 | disposition home or self-care (01) ==
LOC: COL.ER 12:14
PROVIDERS: Family Medicine
DX: R60.0 Localized edema (principal); R79.89 Other specified abnormal findings of blood chemistry; Z79.01 Long term (current) use of anticoagulants
CPT/HCPCS: J1644; J1940

== ENCOUNTER 2024-01-07 17:38 | Inpatient (IN) | payer MEDICARE, BC ==
[~2024-01-07] VITALS: Ht 195.6 cm; Wt 100.8 kg
[~2024-01-07 17:38] MED LIST changes: -CORDARONE200 MG/TAB PO; -LIORESAL 1010 MG/TAB PO; +LIORESAL20 MG PO; +PACERONE100 MG PO; +ZOFRAN ODT8 MG PO; -ZOFRAN8 MG PO
[2024-01-07 18:38] LABS: HEMOGLOBIN 11.1 g/dl (13.5-18.0); MEAN CELL VOLUME 93 fl (80.0-100.0); MEAN CORPUSCULAR HEMOGLOBIN 30 pg (27-31); MEAN CORPUSCULAR HGB CONC 32 g/dl (33.0-37.0); MEAN PLATELET VOLUME 13.5 fl (7.4-10.4); PLATELET COUNT 174 K/mm3 (130-400); RED BLOOD COUNT 3.76 M/mm3 (4.20-5.60); REDCELL DISTRIBUTION WIDTH-CV 20.2 % (11.5-14.5)
[2024-01-07 18:39] LABS: HEMATOCRIT 34.8 % (42.0-52.0)
[2024-01-07 18:50] LABS: CALCIUM 8.4 mg/dL (8.4-10.2); CREATININE, serum 0.92 mg/dL (0.72-1.25); POTASSIUM 3.6 mEq/L (3.5-4.5); TOTAL PROTEIN 5.6 g/dl (6.2-8.1)
[2024-01-07 18:56] LABS: TROPONIN-I 0.02 ng/mL (0.00-0.033)
[2024-01-07 19:03] LABS: BILIRUBIN,TOTAL 0.7 mg/dL (0.2-1.2)
[2024-01-07 19:06] LABS: BAND 4 % (0-10); LYMPHOCYTE 27 % (20.0-51.0); NEUTROPHILS 51 % (42.0-75.2); POLYCHROMASIA 1+
[2024-01-07 19:07] LABS: ANISOCYTOSIS 3+; HYPOCHROMIA 1+; PLATELET ESTIMATE NORMAL (NORMAL)
[2024-01-07 19:08] LABS: SCHISTOCYTES 1+
[2024-01-07 19:09] LABS: TARGET CELLS 2+
[2024-01-07] MEDS ORDERED: Furosemide 40 MG/4 ML VIAL IV ONE (19:30)
[2024-01-07] MEDS ORDERED: NS 50 ML IV SCH (19:35)
[2024-01-07] MEDS ORDERED: Iohexol 300 - 100 ML VIAL IV ONE (19:35)
[2024-01-07] MEDS ORDERED: Apixaban 5 MG TABLET PO SCH (21:00)
[2024-01-07] MEDS ORDERED: Baclofen 10 MG TAB PO SCH (21:00)
[2024-01-07] MEDS ORDERED: Acetaminophen 500 MG TAB PO PRN (21:00)
[2024-01-07] MEDS ORDERED: Pregabalin 50 MG CAP PO SCH (21:00)
[2024-01-07] MEDS ORDERED: traZODone 50 MG TAB PO SCH (21:00)
[2024-01-07] MEDS ORDERED: *Potassium Replacement Protocol MC SCH (22:00)
[2024-01-07] MEDS ORDERED: Potassium Bicarbonate/Citrate 20 MEQ Effervescent TAB PO SCH (22:00)
[2024-01-07 22:10] VITALS: BP 114/75; PULSE 98; TEMP 98.9
--- NOTE | 2024-01-07 22:15 | NUR ---
PATIENT ARRIVED TO ROOM 318 VIA CART FROM ED. TRANSFERRED TO BED USING SLIDE BOARD. PRESENT AT BEDSIDE TO ASSIST WITH INTAKE QUESTIONS PATIENT IS HARD OF HEARING. PATIENT IS IMMOBILE FROM WAIST DOWN AND ONLY HAS SLIGHT SENSATION, STATES ONLY FEELS PINS AND NEEDLES AND TEMPERATURE AT TIMES. STATED HE IS CURRENTLY RECEIVING OUTPATIENT WOUND CARE FOR A STAGE 2 PRESSURE ON HIS LEFT BUTTOCK. ON ASSESSMENT ALSO FOUND STAGE 1 ULCER ON SACRUM WELL PURPLE DISCOLORATION ON THE RIGHT HEEL. ORIENTED PATIENT AND TO ROOM. EDUCATED NEONATAL INTENSIVE CARE UNIT NURSE LIGHT USE AND ENSURE CALL LIGHT IS WITHIN REACH. BED IS LOCKED AND IN LOW POSITION. PATIENT'S OWN WHEELCHAIR IS IN ROOM.
[2024-01-08] VITALS (13 sets, daily range): BP systolic 94–104; BP diastolic 59–69; PULSE 80–95; TEMP 97.7–98.3
[2024-01-08 06:32] LABS: HEMATOCRIT 32.9 % (42.0-52.0); HEMOGLOBIN 10.9 g/dl (13.5-18.0); MEAN CELL VOLUME 90 fl (80.0-100.0); MEAN CORPUSCULAR HEMOGLOBIN 30 pg (27-31); MEAN CORPUSCULAR HGB CONC 33 g/dl (33.0-37.0); MEAN PLATELET VOLUME 13.5 fl (7.4-10.4); PLATELET COUNT 173 K/mm3 (130-400); RED BLOOD COUNT 3.67 M/mm3 (4.20-5.60); REDCELL DISTRIBUTION WIDTH-CV 19.6 % (11.5-14.5)
[2024-01-08 06:43] LABS: CALCIUM 8.4 mg/dL (8.4-10.2); CREATININE, serum 0.84 mg/dL (0.72-1.25); POTASSIUM 3.8 mEq/L (3.5-4.5)
[2024-01-08 07:29] LABS: BAND 6 % (0-10); EOSINOPHIL 1 % (0-4); LYMPHOCYTE 19 % (20.0-51.0); NEUTROPHILS 43 % (42.0-75.2)
[2024-01-08 07:30] LABS: ANISOCYTOSIS 2+; HYPOCHROMIA 1+; PLATELET ESTIMATE NORMAL (NORMAL); TARGET CELLS 1+
[2024-01-08] MEDS ORDERED: Mesalamine DR 1.2 GM TAB PO SCH (09:00)
[2024-01-08] MEDS ORDERED: Amiodarone 200 MG TAB PO SCH (09:00)
[2024-01-08] MEDS ORDERED: Multivitamin TAB PO SCH (09:00)
[2024-01-08] MEDS ORDERED: DULoxetine 60 MG CAP PO SCH (09:00)
[2024-01-08] MEDS ORDERED: Bisoprolol 5 MG TAB PO SCH (09:00)
[2024-01-08] MEDS ORDERED: Influenza Virus Vaccine, Hi-Dose Triv '24-25 (65 YR+) 0.5 ML SYRINGE IM SCH (09:00)
[2024-01-08] MEDS ORDERED: Bumetanide 1 MG/4 ML VIAL IV SCH (09:00)
[2024-01-08] MEDS ORDERED: TRIAMC 0.1 454 TOP (09:18)
[2024-01-08] MEDS ORDERED: VFEND 50MG50 MG PO (09:20)
[2024-01-08 11:11] LABS: CHOLESTEROL RISK RATIO 5.7
--- NOTE | 2024-01-08 11:28 | NUR ---
D: Hvac Sales Representative stopped by room on rounds A: Pt was resting and content with his in the room. Pt has no needs right now. Both appreciated the visit. P: Hvac Sales Representative informed pt that if he needed anything to let his nurse know. Hvac Sales Representative will follow up as needed.
[2024-01-08] MEDS ORDERED: Perflutren Lipid Microsphere 2 ML VIAL IV ONE (11:45)
[2024-01-08] MEDS ORDERED: Digoxin 0.125 MG TAB PO SCH (12:30)
[2024-01-08] MEDS ORDERED: Spironolactone 12.5 MG TAB PO SCH (13:15)
--- NOTE | 2024-01-08 13:52 | NUR ---
fruit or nut farmworker met with pt and , Glenda [phone] to discuss intake information. He reports to live with his in [place]. He sees Dr. Proctor for PCP needs and obtains medications from [facility] with no issues. He verified Medicare A/B and BS Federal insurance. [facility] needs full [facility]LS and [facility] He has a wheelchair, CPAP, and jane lift for DME. He verified on file DPOA-HC listing his daughter. PRATIK faxed updates to solo . PT/OT ordered Discharge Plan: home with
--- NOTE | 2024-01-08 18:43 | NUR ---
PATIENT TURNED TOELRATED. CALL LIGHT WITHIN REACH. FALL PRECAUTIONS IN PLACE. PATIENTS AT BEDSIDE. PATINET DENIES ANY NEEDS OR COMPLAINTS AT THIS TIME.
--- NOTE | 2024-01-08 19:00 | NUR ---
PATIENT RESTING SITTING UP IN BED WATCHING BASEBALL GAME WITH AT BEDSIDE WITH NO ACUTE DISTRESS NOTED. PATIENT ON ROOM AIR. PORT-A-CATH INTACT, PATENT, AND NO COMPLICATIONS NOTED. SUPRAPUBIC CATHETERE INTACT, PATENT, AND DRAINING CLEAR YELLOW URINE. BEDSIDE SHIFT REPORT COMPLETED WITH RAFIA AT THIS TIME. PATIENT DENIES ANY NEEDS. BED IN LOW POSITION WITH WHEELS LOCKED WITH RAILS UP X3 AND CALL LIGHT WITHIN REACH.
--- NOTE | 2024-01-08 19:23 | NUR ---
PATIENT SITTING UP IN BED BRUSHING TEETH WITH AT BEDSIDE WATCHING BASEBALL GAME ON TV WITH NO ACUTE DISTRESS NOTED. PATIENT ON ROOM AIR. SUPRAPUBIC CATHETER INTACT, PATENT, AND DRAINING CLEAR YELLOW URINE. RIGHT UPPER CHEST PORT-A-CATH INTACT WITH NO COMPLICATIONS NOTED. VITAL SIGNS AND ASSESSMENT COMPLETED AT THIS TIME. PATIENT TOLERATED WELL. PATIENT HAD SMALL BROWNISH-TROTTER BOWEL MOVEMENT AND SILVIO CARE PROVIDED. NEW MEPOLIX PLACED ON COCCYX AND BARRIOR CREAM APPLED. BED PAD CHANGED. PATIENT DENIES ANY OTHER NEEDS. BED IN LOW POSITION WITH WHEELS LOCKED WITH RAILS UP X3 AND CALL LIGHT WITHIN REACH.
--- NOTE | 2024-01-08 20:59 | NUR ---
PATIENT RESTING IN BED WITH TV ON WITH NO FAMILY PRESENT WITH NO ACUTE DISTRESS NOTED. PATIENT ON ROOM AIRE. RIGHT UPPER CHEST PORT-A-CATH INTACT WITH NO COMPLICATIONS NOTED. SUPRAPUBIC CATH INTACT, PATENT, AND DRAINING CLEAR YELLOW URINE. MEDICATION ADMINISTRATION COMPLETED AT THIS TIME. PATIENT TOLERATED WELL. CUP OF ICE WITH WATER GIVEN. PATIENT DENIES ANY NEEDS. BED IN LOW POSITION WITH WHEELS LOCKED WITH RAILS UP X3 AND CALL LIGHT WITHIN REACH.
[2024-01-08] MEDS ORDERED: Voriconazole 50 MG TAB PO SCH (21:00)
[2024-01-09 00:05] VITALS: BP_SYST 102
[2024-01-09 03:59] VITALS: BP 95/57; PULSE 86; TEMP 97.5
[2024-01-09 04:00] VITALS: BP_SYST 95
[2024-01-09 06:14] LABS: MEAN CELL VOLUME 91 fl (80.0-100.0); MEAN CORPUSCULAR HEMOGLOBIN 29 pg (27-31); MEAN CORPUSCULAR HGB CONC 32 g/dl (33.0-37.0); MEAN PLATELET VOLUME 13.1 fl (7.4-10.4); PLATELET COUNT 168 K/mm3 (130-400); RED BLOOD COUNT 3.44 M/mm3 (4.20-5.60); REDCELL DISTRIBUTION WIDTH-CV 19.6 % (11.5-14.5)
[2024-01-09 06:19] LABS: HEMATOCRIT 31.3 % (42.0-52.0)
[2024-01-09 06:30] LABS: CALCIUM 8.3 mg/dL (8.4-10.2); CREATININE, serum 0.78 mg/dL (0.72-1.25); POTASSIUM 3.6 mEq/L (3.5-4.5)
[2024-01-09 06:53] VITALS: BP 106/68; PULSE 82; TEMP 97.7
--- NOTE | 2024-01-09 07:00 | NUR ---
PATIENT AWAKE AND ALERT, RESTING IN BED. PATIENT CHANGED AND REPOSITIONED, NEW DRESSINGS PLACED TO SACRUM AND LEFT LOWER BUTTOCK ULCERS. PATIENT NOW SITTING UP IN BED. BREAKFAST ORDER PLACED. CALL LIGHT WITHIN REACH, FALL PRECAUTIONS IN PLACE.
[2024-01-09 07:31] LABS: ANISOCYTOSIS 3+; BAND 8 % (0-10); HYPOCHROMIA 1+; LYMPHOCYTE 17 % (20.0-51.0); NEUTROPHILS 64 % (42.0-75.2); PLATELET ESTIMATE NORMAL (NORMAL)
[2024-01-09 07:32] LABS: OVALOCYTES 1+
[2024-01-09] MEDS ORDERED: ALDACTONE 25MG25 M1 PO (08:34)
[2024-01-09] MEDS ORDERED: LANOXIN 0.120.125 MG PO (08:34)
[2024-01-09 09:00] VITALS: BP_SYST 106
--- NOTE | 2024-01-09 09:30 | NUR ---
PATIENT DRESSED, PORT DEACCESSED PER PROTOCOL BY THIS RN. HAIM CLEANED AND DRESSED. PATIENT AND HIS GIVEN DISCHARGE INSTRUCTIONS AND EDUCATION, THEY VOICE UNDERSTANDING OF NEW MEDICATIONS WELL FOLLOW UP APT NEEDED.
--- NOTE | 2024-01-09 10:00 | NUR ---
PATIENT TAKEN VIA PERSONAL WHEELCHAIR TO ER ENTRANCE BY PCT WHERE HE LEFT IN STABLE CONDITION WITH HIS .
[2024-01-10] MEDS ORDERED: Influenza Virus Vaccine, Hi-Dose Triv '24-25 (65 YR+) 0.5 ML SYRINGE IM SCH (09:00)
== END 2024-01-09 10:38 | disposition home or self-care (01) | DRG 291 ==
LOC: COL.ER 17:38 → MEDICAL 20:25
PROVIDERS: Nurse Practitioner Primary Care; Physician Assistant; ADMIT Internal Medicine
DX: I11.0 Hypertensive heart disease with heart failure (principal); I50.23 Acute on chronic systolic (congestive) heart failure; G47.00 Insomnia, unspecified; G89.29 Other chronic pain; L89.616 Pressure-induced deep tissue damage of right heel; L89.152 Pressure ulcer of sacral region, stage 2; L89.322 Pressure ulcer of left buttock, stage 2; G20.A1 Parkinson's disease without dyskinesia, without mention of fluctuations; I25.5 Ischemic cardiomyopathy; Z79.01 Long term (current) use of anticoagulants
CPT/HCPCS: C8923; J1940; Q9957; Q9967

== ENCOUNTER 2024-03-07 13:15 | Outpatient (RCR) | payer MEDICARE, BC ==
[~2024-03-07 13:15] MED LIST changes: +ALDACTONE 25MG25 M1 PO; +LANOXIN 0.120.125 MG PO; +TRIAMC 0.1 454 TOP; +VFEND 50MG50 MG PO
== END 2024-03-12 | disposition home or self-care (01) ==
LOC: MKS.ESL.PT
DX: R26.81 Unsteadiness on feet (principal); R53.1 Weakness